=== PATIENT | female | born 1990 | race Caucasian/White ===

== ENCOUNTER → 2020-03-09 | Outpatient (REF) | payer OTHER | LOC: M PLALAB 13:12 | PROVIDERS: ATTEND Advanced Practice Midwife | DX: Z34.02 Encounter for supervision of normal first pregnancy, second trimester (principal) ==

== ENCOUNTER → 2020-03-09 | Outpatient (CLI) | payer OTHER ==
[2020-03-09 16:04] LABS: HEMATOCRIT 36.2 % (36.0-47.0); HEMOGLOBIN 11.5 g/dl (12.0-15.5); MEAN CORPUSCULAR HEMOGLOBIN 30.5 pg (27.0-33.0); MEAN CORPUSCULAR HGB CONC 31.8 g/dl (32.0-36.5); PLATELET COUNT, AUTOMATED 276 10^3/uL (150-450); RED BLOOD COUNT 3.77 10^6/uL (4.00-5.40); WHITE BLOOD COUNT 12.1 10^3/uL (4.0-10.0)
[2020-03-09 16:27] LABS: GLUCOSE CHALLENGE TEST 1 HOUR 107 MG/DL (LESS THAN 140)
[2020-03-09 17:08] LABS: HEPATITIS C VIRUS ABY INDEX 0.1 INDEX (<0.8)
[2020-03-09 17:09] LABS: HIV 1&2 SCREEN CENTAUR NEGATIVE (NEGATIVE)
== END ==
LOC: M PLALAB 14:24
PROVIDERS: ATTEND Advanced Practice Midwife
DX: Z34.02 Encounter for supervision of normal first pregnancy, second trimester (principal); Z36.89 Encounter for other specified antenatal screening

== ENCOUNTER → 2020-05-18 | Outpatient (REF) | payer OTHER | LOC: M SFHCWAGY 17:10 | PROVIDERS: ATTEND Advanced Practice Midwife | DX: Z34.03 Encounter for supervision of normal first pregnancy, third trimester (principal) | CPT/HCPCS: 87081; 87186; G0463 ==

== ENCOUNTER 2020-06-15 04:08 | Inpatient (IN) | payer OTHER ==
[~2020-06-15] VITALS: Ht 170.2 cm; Wt 84.1 kg
[2020-06-15] VITALS (32 sets, daily range): BP systolic 100–144; BP diastolic 52–90
[2020-06-15] MEDS ORDERED: LACTATED RINGER'S 1000 ML IV STA (04:37)
[2020-06-15] MEDS ORDERED: PENICILLIN G POTASSIUM IV 5 MU in D5W MINI-BAG PLUS 100 ML IV STA (04:37)
--- NOTE | 2020-06-15 04:44 | HPEPDOC ---
Obstetrical History & Physical General Date of Admission Jun 15, 2020 at 04:36 History of Present Illness 29 yo G1 at 40 1/7 weeks by 11 week ultrasound (EDC=06/14/2020) presents with reg ular contractions for the last several hours.The contractions increased in intensity. no loss of fluid. no bleeding. 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 BREAST: . ABDOMEN: Gravid and non-tender to touch. FETUS: Is vertex (VTX) by sterile vaginal examination (SVE), fetus is vertex (VTX) by Neal. HEART RATE: Regular rate and rhythm. LUNGS: Clear to auscultation (CTA). EXTREMITIES: No edema. No clonus. Deep tendon reflexes (DTRs) + . Laboratory Data 24H LABS Laboratory Tests 2 06/15/20 04:38: Serology Scanned Report Hepatitis B Testing Pertinent Laboratoy Data Blood Type: O+ Group B Streptococcus: Positive Vaginal Examination Dilation: 5 cm Effacement: 90% Station: -2 Cervical Consistency: Soft Cervical Position: Middle Presentation: Cephalic presentation Assessment Variability: Moderate Accelerations: Positive Decelerations: None Tocometer Contractions: Yes Frequency: regular Assessment/Plan Assessment Pt is a 29-year-old (G)1 para (P)0 at 40+1 weeks by 11-week ultrasound. Presents to Labor and Delivery (L&D) in active labor. Plan Admit and orient. Portable Track Line Marker and consent. Group B Streptococcus (GBS) positive. Labs and intravenous (IV) per unit protocol. Anticipate [normal spontaneous delivery ()]. C-S as appropriate. BONNIE ARANGO MD Jun 15, 2020 04:44
[2020-06-15 04:59] LABS: HEMATOCRIT 35.6 % (36.0-47.0); HEMOGLOBIN 11.2 g/dl (12.0-15.5); MEAN CORPUSCULAR HEMOGLOBIN 28.8 pg (27.0-33.0); MEAN CORPUSCULAR HGB CONC 31.5 g/dl (32.0-36.5); MEAN CORPUSCULAR VOLUME 91.5 fl (80.0-96.0); PLATELET COUNT, AUTOMATED 240 10^3/uL (150-450); RED BLOOD COUNT 3.89 10^6/uL (4.00-5.40); WHITE BLOOD COUNT 17.5 10^3/uL (4.0-10.0)
[2020-06-15] MEDS ORDERED: FENTANYL 2MCG/ML ROPIVACAINE 0.2% IN 0.9% NACL 100ML IVBAG As Ordered ONE (05:06)
[2020-06-15] MEDS: LR 1,000 ML IV SCH ×2 (05:49→10:14)
[2020-06-15] MEDS ORDERED: LACTATED RINGER'S 1000 ML IV PRN (07:15)
[2020-06-15] MEDS ORDERED: diphenhydrAMINE 50MG/ML VIAL (J1200) IV PRN (07:15)
[2020-06-15] MEDS ORDERED: REFRIGERATOR IV KEYS XX PRN (07:15)
[2020-06-15] MEDS ORDERED: EPIDURAL COMMENT XX SCH (07:15)
[2020-06-15] MEDS ORDERED: EPIDURAL/PCA KEYS XX PRN (07:15)
[2020-06-15] MEDS ORDERED: ONDANSETRON 4MG/2ML VIAL IV PRN (07:15)
[2020-06-15] MEDS ORDERED: ePHEDrine SULFATE 25 MG/5 ML(5MG/ML) SYRINGE IV PRN (07:15)
[2020-06-15] MEDS ORDERED: NALOXONE INJ 0.4MG/1ML VIAL (J2310 PER 1MG) IV PRN (07:15)
[2020-06-15] MEDS ORDERED: FENTANYL/ROPIVACAINE/NACL BAG 100 ML EPIDURAL SCH (07:15)
[2020-06-15] MEDS ORDERED: PENICILLIN G POTASSIUM IV 2.5 MU in IV 1 EA IV SCH (09:00)
[2020-06-15] MEDS ORDERED: OXYTOCIN DRIP 30 UNITS in IV 1 EA IV SCH (09:12)
[2020-06-15] MEDS ORDERED: RHOGAM 300 MCG (1500 IU) INJ (J2790) IM SCH (12:30)
[2020-06-15] MEDS ORDERED: DOCUSATE SODIUM 100MG CAPSULE PO PRN (12:30)
[2020-06-15] MEDS ORDERED: MOM 30ML SUSPENSION UDC PO PRN (12:30)
[2020-06-15] MEDS ORDERED: ACETAMINOPHEN 500 MG TAB PO PRN (12:30)
[2020-06-15] MEDS ORDERED: ACETAMINOPHEN TAB 650MG DOSE (2X325MG) PO PRN (12:30)
[2020-06-15] MEDS ORDERED: IBUPROFEN 800 MG TAB PO PRN (12:30)
[2020-06-15] MEDS ORDERED: ANUSOL HC CREAM 30GM TOP PRN (12:30)
[2020-06-15] MEDS ORDERED: IBUPROFEN 600MG TAB PO PRN (12:30)
[2020-06-15] MEDS ORDERED: DIBUCAINE 1% OINTMENT 30GM TOP PRN (12:30)
[2020-06-15] MEDS ORDERED: MEASLES,MUMPS,RUBELLA VACCINE INJ (MMR-II) (90707) SC SCH (12:30)
[2020-06-15] MEDS ORDERED: METHYLERGONOVINE MALEATE 0.2 MG TAB PO PRN (12:30)
--- NOTE | 2020-06-15 13:20 | DNPDOC ---
[facility] Delivery Note Delivery Note DATE OF DELIVERY: 06/15/2020 PREDELIVERY DIAGNOSIS: 39+5/7 weeks' gestation and labor. POST DELIVERY DIAGNOSIS: Delivered. PROCEDURE: Spontaneous vaginal delivery. PROVIDER: Alisson Marucs CNM ANESTHESIA: Epidural. ESTIMATED BLOOD LOSS: 150 mL. FINDINGS: 7 pound 6 ounce, 3340gm female infant, Score 8/9, no nuchal cord. DELIVERY SUMMARY: Patient is a 29-year-old 1 now para 1-0-0-1 who was admitted to labor and delivery for spontaneous labor. She progressed well, utilized an epidural for labor coping. Spontaneous rupture of membranes, clear fluid @ 1015. Viable female child delivered spontaneously NOLA @ 1022. Spontaneous respirations, transitioned on maternal abdomen. Cord doubly clamped and cut by FOB under my direction. Apgars 8/9. Placenta briggs, intact with 3v cord @ 1204. Fundus firmed with massage and IV pitocin bolus. EBL 150ml. Cervix, vagina, perineum inspected. 1st degree posterior vaginal outlet laceration repaired with 2 stitches of 3-0 vicryl rapide. Left labial laceration repaired with 2 interrupted stitches of same suture. Sponge, sharp and instrument count correct. Parents are naming their uli Shell. Alisson Marcus CNM Jun 15, 2020 12:29
[2020-06-16 06:00] VITALS: BP 130/71
--- NOTE | 2020-06-16 06:55 | IPNPDOC ---
Text Note Date of Service The patient was seen on 06/16/20. NOTE PP Feels well. Reports breast discomfort with nursing. Using shield. Otherwise adequate pain management. Voiding VSS, afebrile, normotensive Breasts soft. Right nipple with small blood blister, otherwise intact Fundus firm, NT, down 1 FB Lochia rubra light without odor Perineum well approximated without edema PP #1 Reviewed adequate latch each nursing. Enc position change. Enc to request nursing support from staff each time to ensure adequate latch. Consider discharge in am VS,Fishbone, I+O VS, Fishbone, I+O Vital Signs Date Time Temp Pulse Resp B/P (MAP) Pulse Ox O2 Delivery O2 Flow Rate FiO2 06/16/20 06:00 97.3 18 71 130/71 (90) 06/15/20 18:00 99 Room Air I&O- Last 24 Hours up to 6 AM 06/16/20 06:00 Intake Total 2293.3 ml Output Total 1100 ml Balance 1193.3 ml Alisson Marcus CNM Jun 16, 2020 06:55
[2020-06-16] MEDS ORDERED: PRENATAL VITAMINS CHEWABLE TABLET PO SCH (09:00)
[2020-06-16] MEDS ORDERED: IBUP80TA PO (10:56)
[2020-06-16] MEDS ORDERED: ACET-683 PO (10:56)
== END 2020-06-16 15:25 | disposition home or self-care (01) | DRG 807 ==
LOC: M LDO 04:08 → M LDI 04:36 → M OBS 14:20
PROVIDERS: ADMIT Specialist; ATTEND Specialist
PROC: 10E0XZZ Delivery of Products of Conception, External Approach (ICD-10-PCS; principal; 2020-06-15)
PROC: 0HQ9XZZ Repair Perineum Skin, External Approach (ICD-10-PCS; 2020-06-15)
DX: O48.0 Post-term pregnancy (principal); Z37.0 Single live birth; O99.824 Streptococcus B carrier state complicating childbirth; Z3A.40 40 weeks gestation of pregnancy; O70.0 First degree perineal laceration during delivery

== ENCOUNTER → 2020-06-25 | Outpatient (CLI) | payer OTHER ==
[~2020-06-25] MED LIST: ACET-683 PO; IBUP80TA PO
[2020-06-25 15:06] LABS: HEPATITIS B CORE ANTIBODY IGM NEGATIVE (NEGATIVE); HEPATITIS B SURFACE ANTIBODY POSITIVE (POSITIVE); HEPATITIS B SURFACE ANTIGEN NEGATIVE (NEGATIVE)
[2020-06-26 14:09] LABS: HERPES ZOSTER, VARICELLA IgG >4000 index (Immune >165); HERPES ZOSTER, VARICELLA IgM <0.91 index (0.00-0.90); MUMPS VIRUS IgG ANTIBODY 24.4 AU/mL (Immune >10.9); RUBEOLA IgG ANTIBODY 46.8 AU/mL (Immune >16.4)
== END ==
LOC: M PLALAB 09:27
PROVIDERS: ATTEND Physician Assistant
DX: Z11.1 Encounter for screening for respiratory tuberculosis (principal); Z01.84 Encounter for antibody response examination

== ENCOUNTER → 2020-08-28 | Outpatient (REF) | payer OTHER | LOC: M SFHCWAGY 14:52 | PROVIDERS: ATTEND Advanced Practice Midwife | DX: Z11.3 Encounter for screening for infections with a predominantly sexual mode of transmission (principal); Z30.430 Encounter for insertion of intrauterine contraceptive device; Z32.02 Encounter for pregnancy test, result negative | CPT/HCPCS: 58300; 81025; 87491; 87591; J7298 ==

== ENCOUNTER → 2020-10-03 | Outpatient (REF) | payer OTHER | LOC: M SFHCWAGY 13:09 | PROVIDERS: ATTEND Advanced Practice Midwife | DX: R87.610 Atypical squamous cells of undetermined significance on cytologic smear of cervix (ASC-US) (principal); Z12.4 Encounter for screening for malignant neoplasm of cervix | CPT/HCPCS: 87624; G0123; G0463 ==

== ENCOUNTER → 2021-03-28 | Outpatient (CLI) | payer OTHER ==
--- NOTE | 2021-03-28 11:19 | REP ---
INDICATION: PAIN IN THORACIC SPINE COMPARISON: None. TECHNIQUE: AP, lateral, and swimmers views. FINDINGS: Alignment and kyphosis is maintained. Vertebral bodies intact. No acute fracture / compression injury or subluxation. No degenerative changes. Paravertebral soft tissues are normal. IMPRESSION: Normal thoracic spine series. <Electronically signed by Case Salamanca > 03/28/21 [id number]
--- NOTE | 2021-03-28 11:20 | REP ---
INDICATION: PAIN IN THORACIC SPINE COMPARISON: None. TECHNIQUE: AP, lateral, flexion/extension, bilateral oblique, and coned-down views. FINDINGS: Alignment and lordosis is maintained. The vertebral bodies including transverse process and spinous processes are intact and normal. There is no evidence for acute fracture / compression injury or subluxation. No evidence for spondylolysis or spondylolisthesis. No significant degenerative change is noted. IMPRESSION: Normal lumbosacral spine radiograph series. <Electronically signed by Case Salamanca > 03/28/21 1117
== END ==
LOC: M RAD 10:23
PROVIDERS: ATTEND Family Medicine
DX: M54.6 Pain in thoracic spine (principal); M54.50 Low back pain, unspecified

== ENCOUNTER → 2021-04-04 | Outpatient (CLI) | payer OTHER ==
[2021-04-04 11:26] LABS: BASO # 0.1 10^3/uL (0.0-0.2); BASO % 0.5 % (0.0-1.0); EOS # 0.2 10^3/uL (0.0-0.5); EOS % 1.2 % (0.0-3.0); HEMATOCRIT 42.9 % (36.0-47.0); HEMOGLOBIN 13.5 g/dl (12.0-15.5); LYMPH # 3.4 10^3/uL (1.5-5.0); LYMPH % 21.9 % (24.0-44.0); MEAN CORPUSCULAR HEMOGLOBIN 29.3 pg (27.0-33.0); MEAN CORPUSCULAR HGB CONC 31.5 g/dl (32.0-36.5); MEAN CORPUSCULAR VOLUME 93.3 fl (80.0-96.0); MONO # 0.8 10^3/uL (0.0-0.8); MONO % 5.5 % (2.0-8.0); NEUTROPHILS # 10.8 10^3/uL (1.5-8.5); NEUTROPHILS % 70.5 % (36.0-66.0); PLATELET COUNT, AUTOMATED 360 10^3/uL (150-450); WHITE BLOOD COUNT 15.4 10^3/uL (4.0-10.0)
== END ==
LOC: M LAB 10:50
PROVIDERS: ATTEND Family Medicine
DX: D72.829 Elevated white blood cell count, unspecified (principal)

== ENCOUNTER → 2021-04-29 | Outpatient (CLI) | payer OTHER ==
[~2021-04-29] MED LIST changes: +BUSP5TA PO; +CYCL-707 PO; +PRAZ1CAP PO; +ZOLO25TA PO
--- NOTE | 2021-04-29 11:20 | REP ---
INDICATION: NEOPLASM OF UNCERTAIN BEHAVIOR OF CONNCTV/SOFT TIS COMPARISON: None TECHNIQUE: Limited ultrasound examination using B-mode technique. FINDINGS: Direct ultrasound examination overlying the knee/area of mass demonstrates a 4.0 x 3.0 x 1.7 cm hypoechoic collection with internal vascularity raising the possibility of pseudoaneurysm or mass. IMPRESSION: Nonspecific hypoechoic vascular lesion. Correlation with possible history of trauma. Consider contrast-enhanced CT or MRI for further investigation. <Electronically signed by Case Salamanca > 04/29/21 1113
[2021-04-29 12:42] LABS: FREE T4 0.95 NG/DL (0.76-1.46); THYROID STIMULATING HORMONE 0.337 uIU/ML (0.358-3.740)
[2021-04-29 12:43] LABS: THYROGLOBULIN ANTIBODY 20.7 U/ML (<60.0); THYROID PEROXIDASE ANTIBODY 32.5 U/ML (<60.0)
== END ==
LOC: M RAD 10:49
PROVIDERS: ATTEND Family Medicine
DX: D48.1 Neoplasm of uncertain behavior of connective and other soft tissue (principal); R94.6 Abnormal results of thyroid function studies

== ENCOUNTER → 2021-05-21 | Outpatient (CLI) | payer OTHER ==
[~2021-05-21] MED LIST changes: +PROHANCE 279.3MG/ML 15ML VIAL As Ordered ONE
== END ==
LOC: M RAD 15:39
PROVIDERS: ATTEND Family Medicine
DX: R22.42 Localized swelling, mass and lump, left lower limb (principal)
CPT/HCPCS: 73723; A9576

== ENCOUNTER → 2021-06-06 | Outpatient (CLI) | payer OTHER ==
[~2021-06-06] MED LIST changes: +LIDOCAINE 1% MDV 20ML VIAL As Ordered ONE; -PROHANCE 279.3MG/ML 15ML VIAL As Ordered ONE
[2021-06-06 13:50] VITALS: BP 120/75
== END ==
LOC: M IRPRO 12:55
PROVIDERS: ATTEND Family Medicine
DX: D21.20 Benign neoplasm of connective and other soft tissue of unspecified lower limb, including hip (principal)

== ENCOUNTER → 2021-06-11 | Outpatient (CLI) | payer OTHER ==
[~2021-06-11] MED LIST changes: -LIDOCAINE 1% MDV 20ML VIAL As Ordered ONE
== END ==
LOC: M PLAIMG 09:05
PROVIDERS: ATTEND Family Medicine
DX: M54.16 Radiculopathy, lumbar region (principal)